=== PATIENT | female | born 1965 | race Caucasian/White ===

== ENCOUNTER 2018-05-26 07:10 | Day surgery (SDC) | payer OTHER ==
[2018-05-24 14:24] VITALS: BMI 61.3
[2018-05-26] MEDS ORDERED: PROPOFOL 20 ML ONE ×2 (07:51)
[2018-05-26] MEDS ORDERED: MIDAZOLAM HCL 2 MG/2 ML SINGLE DOSE VIAL ONE ×2 (07:52)
[2018-05-26] MEDS ORDERED: KETOROLAC TROMETHAMINE 30 MG/1 ML VIAL ONE ×2 (07:53→08:48)
[2018-05-26] MEDS ORDERED: ONDANSETRON 4 MG/2 ML VIAL ONE ×2 (07:53→09:07)
[2018-05-26] MEDS ORDERED: DEXAMETHASONE SOD PHOSPHATE 4 MG/1 ML VIAL ONE (07:53)
[2018-05-26] MEDS ORDERED: ceFAZolin SODIUM 1 GM VIAL ONE ×2 (07:54→08:38)
[2018-05-26] MEDS ORDERED: BUPIVACAINE HCL/PF 2.5 MG/ML - 30 ML VIAL IJ ONE (08:31)
[2018-05-26] MEDS ORDERED: METOCLOPRAMIDE HCL INJECTION 10 MG/2 ML VIAL ONE (08:48)
[2018-05-26] MEDS ORDERED: BUPIVACAINE HCL/PF 0.25% (2.5MG/ML) 10 ML VIAL IJ ONE (09:38)
[2018-05-26] MEDS ORDERED: ONDANSETRON 4 MG/2 ML VIAL IVPUSH PRN (09:51)
[2018-05-26] MEDS ORDERED: oxyCODONE HCL 5 MG TABLET PO PRN (09:51)
[2018-05-26] MEDS ORDERED: LACTATED RINGERS SOLUTION 1,000 ML IV SCH (10:00)
[2018-05-26 11:23] VITALS: PULSE 72; TEMP 98.5
[2018-05-26 11:54] VITALS: BP 110/60
--- NOTE | 2018-05-26 13:11 | OP ---
DATE OF OPERATION: 05/26/2018 LOCATION: [facility] SURGEON: Sunday Carrion MD [employer] LAYOUT: POLLY Sheldon POSTOPERATIVE DIAGNOSES: 1. Right knee mediolateral meniscal tear. 2. Right knee cartilage injury. 3. Right knee synovitis. POSTOPERATIVE DIAGNOSES: 1. Right knee mediolateral meniscal tear. 2. Right knee cartilage injury. 3. Right knee synovitis. PROCEDURE: 1. Right knee arthroscopy with partial meniscectomy, medial and lateral meniscus. CPT code 90097. 2. Right knee arthroscopy with chondroplasty and abrasoplasty. CPT code 28777. 3. Right knee arthroscopy with synovectomy with removal of plica. CPT code 33787. FINDINGS: 1. Medial meniscus body and posterior horn tear, posterior one-third total. 2. Lateral meniscus posterior horn tear. 3. Synovitis patellofemoral, mediolateral notch area. 4. Extensive grade 2-3 cartilage injury, medial femoral condyle and tibial plateau. 5. ACL and PCL intact. 6. Diffuse grade 1-2 changes in the lateral . 7. Extensive grade 2-4 cartilage injury, patella and patellofemoral trochlea with large medial plica. PROCEDURE: Informed consent was obtained. The patient came to the operating room, where the lower extremity was prepped and draped in a sterile fashion. A tourniquet was placed on the upper thigh, but not inflated. Using standard arthroscopic technique, a lateral incision and portal was made to allow for introduction of the camera into the suprapatellar bursa. This was then taken to the medial joint line, where under direct visualization, a medial incision and portal was made. Excessive synovium noted in the medial, lateral and patellofemoral and notch area was removed by an upbiter, shaver and Bovie cautery. This was found to bring in inflammatory tissue into the joint surface, a source of pain and dysfunction. Probing of the medial and lateral meniscus found tears, as described in the findings. These were removed with the upbiter and shaver and taken back to a stable rim. Grade 2 to 3 degenerative changes were treated with a chondroplasty, removing all flaking surfaces with low-setting Bovie along the periphery to prevent further flaking. Grade 4 changes, as noted, were treated with an abrasoplasty, creating a bleeding surface at the bone/cartilage interface. Aggressive debridement with shaver/lizett created bleeding surface. Micro fracture also done when indicated in findings. All areas of the knee were once again reexamined. The knee was then drained and a single suture was placed in all portals. A sterile dressing was placed and the patient was transferred to the recovery room without complication. The PA listed above was present and assisted at surgery. Their presence was absolutely medically necessary for the completion of the procedure. They helped hold the arthroscopy, pass instruments (and implants when indicated) and the procedure could not have been completed without their assistance. SUNDAY CARRION M.D. [id number]
--- NOTE | 2018-05-30 16:03 | PATH ---
Surgical Pathology Report Patient Name: YUNIER HDZ [facility]. Rec. #: [id number] /Age/Gender: 1965 (Age: 52) / F Account: [id number] Location: [facility] AMBULATORY Taken: 05/26/2018 Received: 05/26/2018 Reported: 05/30/2018 Physicians: Sunday Villanueva M.D. Specimen(s) Received RIGHT KNEE SHAVINGS Clinical History Right knee internal derangement Final Diagnosis KNEE, RIGHT, ARTHROSCOPIC SHAVINGS: CARTILAGE, FIBROSYNOVIAL AND FIBROCARTILAGINOUS TISSUE. Electronically Signed Laura Matute M.D. Gross Description Received in formalin, labeled "right knee shaving," is a 5.0 x 4.5 x 0.5 cm. aggregate of butler-yellow soft tissue fragments. A personal service representative portion is submitted in one cassette. /05/26/201805/26/2018
== END 2018-05-26 11:59 | disposition home or self-care (01) ==
LOC: FASU 07:10
PROVIDERS: ATTEND Orthopaedic Surgery
PROC: 0SBC4ZZ Excision of Right Knee Joint, Percutaneous Endoscopic Approach (ICD-10-PCS; 2018-05-26)
PROC: 0SBC4ZZ Excision of Right Knee Joint, Percutaneous Endoscopic Approach (ICD-10-PCS; 2018-05-26)
PROC: 0SBC4ZZ Excision of Right Knee Joint, Percutaneous Endoscopic Approach (ICD-10-PCS; 2018-05-26)
PROC: 0SBC4ZZ Excision of Right Knee Joint, Percutaneous Endoscopic Approach (ICD-10-PCS; principal; 2018-05-26 09:20)
DX: S83.281A Other tear of lateral meniscus, current injury, right knee, initial encounter (principal); S83.241A Other tear of medial meniscus, current injury, right knee, initial encounter; X58.XXXA Exposure to other specified factors, initial encounter; Y93.9 Activity, unspecified; Y92.9 Unspecified place or not applicable; Y99.9 Unspecified external cause status; M65.861 Other synovitis and tenosynovitis, right lower leg
CPT/HCPCS: 84703; 88304-TC; 94760